=== PATIENT | male | born 1945 | race Caucasian/White ===

== ENCOUNTER 2017-10-30 22:55 | Emergency (ER) | payer OTHER, MEDICARE ==
[~2017-10-30] VITALS: Ht 177.8 cm; Wt 98.6 kg
[~2017-10-30 22:55] MED LIST: Ascorbic Acid,Ester- PO; Aspirin E.C. PO; Dilaudid PO; Fish Oil PO; Flexeril PO; Folvite PO; Nitrostat,NitroQuick SL; Oscal 500 w/Vitamin PO; Theragran PO; Tylenol Regular Stre PO; Vitamin D PO; Zestril,Prinivil PO; Ziac 5/6.25 PO; Zinc Gluconate PO; Zocor PO
[2017-10-31] MEDS ORDERED: ZOLOFT25 MG PO (00:29)
[2017-10-31] MEDS ORDERED: COZAAR100 MG PO (00:29)
[2017-10-31] MEDS ORDERED: ANORO ELLIPTA1 EACH IH (00:30)
[2017-10-31] MEDS ORDERED: VENTOLIN HFA18 GM IH (00:30)
[2017-10-31] MEDS ORDERED: ULTRAM50 MG PO (00:34)
[2017-10-31 00:45] VITALS: BP 126/71
== END 2017-10-31 00:45 | disposition home or self-care (01) ==
LOC: EME 22:55
PROC: 2W3DX1Z Immobilization of Left Lower Arm using Splint (ICD-10-PCS; principal; 2017-10-30)
DX: S52.502A Unspecified fracture of the lower end of left radius, initial encounter for closed fracture (principal); S70.02XA Contusion of left hip, initial encounter; W17.89XA Other fall from one level to another, initial encounter; Y93.89 Activity, other specified; Y99.0 Civilian activity done for income or pay; E11.9 Type 2 diabetes mellitus without complications; I10 Essential (primary) hypertension; J45.909 Unspecified asthma, uncomplicated; Z87.891 Personal history of nicotine dependence; Z98.1 Arthrodesis status; Z79.82 Long term (current) use of aspirin
CPT/HCPCS: 71046; 72192; 73110; 99281; 99284